=== PATIENT | female | born 1930 | race Caucasian/White ===

== ENCOUNTER 2016-12-31 12:37 | Emergency (ER) | payer MEDICARE ==
--- NOTE | ~2016-12-31 | CT71 ---
[facility] A Service of [facility] RADIOLOGY TEXT RESULTS PATIENT: PHOEBE MCINTYRE LOCATION: [facility] : 30 UNIT #: [id number] AGE: [address]: Jesus Albreto Watson MD SEX: F ORDER DR: [id number] [facility] [address] [place], [place] [address] [id number] P MR#: [id number] Acc #: [id number] NAME: PHOEBE MCINTYRE : 1930 SEX: F STUDY DATE/TIME: 12/31/2016 14:35 UNIT: ENRIQUE ROOM: STUDY DESCRIPTION: CT Head Wo Contrast Attending Physician: Jesus Alberto Watson M.D. Ordering Physician: Jesus Alberto Watson M.D. Primary Care Physician: Angel Pham M.D. MEDICAL IMAGING REPORT This report is preliminary unless electronic signature is present EXAM CT head INDICATIONS Headache. Nausea and vomiting. Numbness in the hands and feet. TECHNIQUE CT head without contrast. This CT exam was performed with one or more of the following radiation dose reduction techniques: automatic exposure control, adjustment of mA and/or kV according to patient size, and iterative reconstruction. COMPARISON CT head 03/12/2013. FINDINGS There is no acute intracranial hemorrhage, mass lesion, or acute infarct. Kumar-white matter differentiation is normal. The ventricles and basilar cisterns are normal in size and configuration. No extraaxial collections. No acute osseous abnormalities. There is some mucosal thickening in the right maxillary sinus. Hyperostosis of the sinus patel suggest chronic sinusitis. IMPRESSION 1. No acute intracranial findings. 2. Mucosal thickening in the right sphenoid sinus with some hyperostosis of the sinus patel. Please correlate for any evidence of acute on chronic sinusitis. Dictated by... Jose Rafael Carpenter M.D. [facility] A Service [facility] RADIOLOGY TEXT RESULTS PATIENT: PHOEBE MCINTYRE LOCATION: [facility] : 30 UNIT #: [id number] AGE: [address]: Jesus Alberto Watson MD SEX: F ORDER DR: THIS IS AN ELECTRONICALLY VERIFIED REPORT Jose Rafael Carpenter M.D. at 12/31/2016 4:01 PM Vincent TD: 12/31/2016 15:29 JOB #: [id number] MEDICAL IMAGING REPORT Page 1 of 1 COPY
[~2016-12-31 12:37] MED LIST: ANTIVERT PO; ASPIRIN EC81 M1 PO; BENTYL10 MG PO; CALCIUM + VITA1 EACH; CALCIUM 500 + D1 TAB PO; IBUPROFEN PO; LISINOPRIL-HCTZ1 T20 PO; MACROBID100 MG PO; MEDI-MECLIZINE25 M1 PO; PREVACID PO
[2016-12-31] MEDS ORDERED: METOPROLOL SUCC50 MG PO (12:54)
[2016-12-31] MEDS ORDERED: CIPRO PO (12:55)
[2016-12-31] MEDS ORDERED: MULTI-DAY VITA1 EACH (12:56)
[2016-12-31] MEDS ORDERED: RANITIDINE HCL150 M1 PO (12:56)
[2016-12-31] MEDS ORDERED: STOOL SOFTENER1 EAC1 PO (12:57)
[2016-12-31 13:54] LABS: BASOPHIL% 0.6 % (0-2.5); EOSINOPHIL% 0.3 % (0.0-7.0); HEMOGLOBIN 14.1 gm/dL (12.0-16.0); LYMPHOCYTE# 1.1 X10e3 (1.0-3.5); LYMPHOCYTE% 22.5 % (17.0-45.0); MEAN CELL VOLUME 84.5 FL (83-96); MEAN CORPUSCULAR HEMOGLOBIN 27.6 PG (28-34); MEAN CORPUSCULAR HGB CONC 32.7 g/dL (30-36); MEAN PLATELET VOLUME 7.6 FL (6.5-11.5); MONOCYTE# 0.4 X10e3 (0-1.0); MONOCYTE% 7.6 % (3.0-12.0); NEUTROPHIL# 3.3 X10e3 (1.5-7.1); PLATELET COUNT 204 X10e3 (140-420); WHITE BLOOD COUNT 4.8 X10e3 (4.0-10.5)
[2016-12-31 13:57] LABS: DIFF IND NO
[2016-12-31 14:20] LABS: ALBUMIN SERUM 4.3 g/dL (3.5-5.0); BILIRUBIN, DIRECT 0.1 mg/dL (0.0-0.2); BILIRUBIN,TOTAL 1.1 mg/dL (0.2-2.0); BUN/CREATININE RATIO 17.77; CALCIUM SERUM 9.4 mg/dL (8.4-10.2); CREATININE SERUM 0.9 mg/dL (0.6-1.4); GLOM FILT RATE Estimated 57.9 mL/min (>60); MAGNESIUM 1.8 mg/dL (1.6-3.0); POTASSIUM 4.6 mmol/L (3.5-5.1); PROTEIN TOTAL SERUM 7.2 g/dL (6.0-8.3)
== END 2016-12-31 15:49 | disposition home or self-care (01) ==
LOC: CED 12:37
PROVIDERS: Emergency Medicine
DX: R51 Headache (principal); I10 Essential (primary) hypertension; Z90.49 Acquired absence of other specified parts of digestive tract; Z79.2 Long term (current) use of antibiotics; Z79.899 Other long term (current) drug therapy; Z88.5 Allergy status to narcotic agent
CPT/HCPCS: 36415; 70450; 80048; 80076; 83735; 85025; 85652; 99284